=== PATIENT | male | born 1935 | race Caucasian/White ===

== ENCOUNTER 2016-12-29 04:38 | Inpatient (IN) | payer MEDICARE, BC ==
[2016-12-29] VITALS (38 sets, daily range): BP systolic 38–103; BP diastolic 12–61; PULSE 0–158; RESP 12–37; Ht 160 cm; Wt 80.8 kg
[~2016-12-29] VITALS: Ht 160 cm; Wt 80.8 kg
[2016-12-29] MEDS ORDERED: NORepinephrine 8MG/250 ML (PMX 250 ML IV SCH ×2 (05:30→08:00)
[2016-12-29] MEDS ORDERED: VANCOMYCIN IV PER PHARMACY XX SCH (05:30)
[2016-12-29] MEDS ORDERED: PHENYLephrine 20MG IN 250 ML 250 ML ONE (05:56)
[2016-12-29] MEDS ORDERED: SOD CHLORIDE 0.9% 1,000 ML IV SCH (06:00)
[2016-12-29] MEDS ORDERED: PIPER-TAZO 3.375 GM IV (PMX) 100 ML IVPB SCH ×2 (06:00→14:00)
[2016-12-29] MEDS: PHENYLephrine 40 MG in DEXTROSE 5% 496 ML IV SCH ×3 (06:19→12:10)
[2016-12-29 06:29] LABS: ADD SCAN DIFF NO
[2016-12-29 06:38] LABS: ABNORMAL IP MESSAGE 1; HEMATOCRIT 28.1 % (42.0-52.0); HEMOGLOBIN 8.9 g/dl (14.0-18.0); MEAN CORPUSCULAR HEMOGLOBIN 33.8 pg (29.0-33.0); MEAN CORPUSCULAR HGB CONC 31.7 g/dl (32.0-37.0); MEAN CORPUSCULAR VOLUME 106.8 fl (82.0-101.0); PLATELET COUNT 59 10^3/UL (140-415); RED BLOOD COUNT 2.63 10^6/ul (4.70-6.10); RED CELL DISTRIBUTION WIDTH 18.6 % (11.5-14.5); WHITE BLOOD COUNT 0.9 10^3/ul (4.8-10.8)
[2016-12-29 07:43] LABS: ALBUMIN 2.3 g/dl (3.3-4.9); BILIRUBIN,INDIRECT 0.1 mg/dl (0-1.1); BILIRUBIN,TOTAL 0.1 mg/dl (0.2-1.3); TOTAL PROTEIN 4.8 g/dl (6.1-8.1)
--- NOTE | 2016-12-29 07:45 | QN ---
Documentation Comment Called to room 103 of the ICU for an emergent central line for a hypotensive patient on pressors. Ultrasound-guided central line placement note, left femoral vein: Patient was prepped and draped in sterile fashion with count mass Gloves ultrasound probe cover, chlorhexidine wipe. Ultrasound guidance was easily used to introduce a triple lumen 7 Irish catheter using Seldinger technique into the left femoral vein. One attempt was made. All ports had good blood return and flushed well. Patient tolerated the procedure well there were no complications. Patient's vital signs did not change throughout the procedure. VANIA MORENO DO December 29, 2016 07:45
[2016-12-29 07:46] LABS: AADO2 Arterial 567.5 mmHg (7.0-24.0); Allen Test ACCEPTAB; Arterial Base Excess -0.4 mmol/L (-3.0-3); Arterial COHb 0.3 % (0.0-3.0); Arterial Fraction of Oxyhgb 83.3 % (93.0-99.0); Arterial HCO3 29.6 mmol/L (22.0-26.0); Arterial MetHb 0.4 % (0.0-1.5); Arterial Total Hemglobin 9.9 g/dl (12.0-18.0); Blood Gas Low PEEP Setting 0 cmH2O; MODE VENT - AC
[2016-12-29] MEDS ORDERED: METHYLPREDNISOLONE 125 MG INJ IV SCH ×2 (08:00→14:00)
[2016-12-29] MEDS ORDERED: FLUCONAZOLE 100 MG/NS (PMX) 50 ML IVPB SCH (08:00)
[2016-12-29] MEDS ORDERED: VANCOMYCIN 1.5 GM in SOD CHLORIDE 0.9% 250 ML IVPB SCH (08:00)
[2016-12-29] MEDS ORDERED: ALBUMIN HUMAN 25% 50 ML IV ONE (08:30)
[2016-12-29] MEDS ORDERED: DIGOXIN 500 MCG INJ IV ONE ×2 (08:30→12:30)
--- NOTE | 2016-12-29 08:30 | RADRPT ---
PROCEDURE: XR Chest. CLINICAL INDICATION: Central line placement TECHNIQUE: A single AP view of the chest was obtained. COMPARISON: Chest x-ray dated 12/26/2016 and 12/28/2016 FINDINGS: A tracheostomy tube is in place. There is a left subclavian dual chamber pacemaker. Lung volumes are low. There are diffuse bilateral coarse interstitial opacities. The cardiomediasti nal silhouette is partially obscured. Calcifications are seen within the aortic arch. The osseous structures demonstrate senescent changes. There are post procedural changes from multilevel vertebr oplasty. IMPRESSION: 1. Diffuse coarse interstitial opacities may reflect chronic lung changes with superimposed interst itial edema versus pneumonia. Overall, no significant interval change. 2. Low lung volumes. 3. Aortic atherosclerosis. 4. Tubes and lines, as described above. RPTAT: HH .Vicki Andrew MD, Date Time Electronically viewed and signed by .Vicki Andrew MD, on 12/29/2016 08:29 .G/
[2016-12-29] MEDS ORDERED: ALBUMIN HUMAN 25% 100 ML ONE (08:33)
[2016-12-29 08:35] LABS: INR 2.16; PROTIME 24.3 Sec (12.2-14.2); PT RATIO 1.9
--- NOTE | 2016-12-29 08:44 | HP ---
DATE OF ADMISSION: 12/29/2016 CHIEF COMPLAINT: Septic shock. HISTORY OF PRESENT ILLNESS: This is a 81-year-old male with a past medical history of pulmonary fib rosis, a history of multiple myeloma, a history of coronary artery disease, COPD, diastolic heart fa ilure, permanent pacemaker, a history of atrial fibrillation, who initially presented to [facility] with respiratory failure. The patient during that hospital course was found to be hypoxemi c and was subsequently intubated. The patient had a prolonged course and was eventually trached and pegged. The patient's hospital course included bilateral pneumonia and urinary tract infections for his underlying cause of sepsis. The patient was eventually stabilized and transferred to [facility]. While at [facility] the patient was being seen by multiple specialists. He was seen david Begum, hematology, for his underlying multiple myeloma. The patient, in terms of his multiple myeloma, has apparently had multiple lines of chemotherapy, including Velcade, Revamid, dexamethaso ne, and he has progressed through all of them. He is currently on Decadron. The patient while at [facility] had been noted to have a decline in the last 24 hours. Apparently the patient was becoming mo re lethargic, less responsive. Overnight the patient was noted to be hypotensive, not responsive to IV fluids. As a result, he was transferred to [facility] intensive care unit. At the [facility] care unit the patient had a central line placed by the ER physician. He was started on broad -spectrum antibiotics and IV fluids. Upon my evaluation of the patient at this time, the patient's a daughter is at the bedside. The pat ient is currently nonresponsive, retracts only to deep painful stimuli. According to the patient's daughter, she has noted a decline over the last 2 to 3 days, where he is becoming more lethargic. T here are no reports of hemoptysis, hemetemesis or hematochezia. No fever noted. PAST MEDICAL HISTORY: As stated above, a history of pulmonary fibrosis, multiple myeloma, coronary artery disease, heart failure, atrial fibrillation. PAST SURGICAL HISTORY: Status post trach, status post PEG. FAMILY HISTORY: Noncontributory. SOCIAL HISTORY: History of smoking in the past. MEDICATIONS: The patient's medications have been reviewed and reconciled. ALLERGIES: Have been reviewed, please see the list. Patient is FULL CODE. REVIEW OF SYSTEMS: Unable to do an adequate review of systems as the patient is obtunded. Pertinen t positives as obtained through speaking to hospital staff, medical records, as stated in the HPI, o therwise negative. PHYSICAL EXAMINATION: VITAL SIGNS: Blood pressure is 80/54, respirations 28, pulse 132, temperature 98.6. HEENT: Head is normocephalic. Pupils are minimally reactive. HEART: Irregularly irregular. LUNGS: Show diminished breath sounds at the base. Positive rhonchi and crackles. ABDOMEN: Soft, nontender to palpation. Mild ecchymoses. EXTREMITIES: Negative for clubbing or cyanosis. Trace edema. DERMATOLOGIC: No rashes. MUSCULOSKELETAL: Positive wounds. GENITOURINARY EXAM: Positive Weber. NEUROLOGIC: The patient is obtunded. LABORATORY DATA: Shows a white count of 0.9, hemoglobin 8.9, hematocrit 28.1, platelet count of 59. Lactic acid 3.4. CMP is currently pending. Chest x-ray shows coarse interstitial opacities. May represent superimposed edema versus pneumonia. Low lung volumes. ASSESSMENT AND PLAN: This is a 81-year-old male who presents with: 1. Septic shock. Underlying source is presumed to be pneumonia, healthcare-associated. However, g iven the patient's immunocompromised and neutropenic state, will aggressively evaluate for other pos sible sources. Plan at this point is to check blood cultures x2, a urine culture, will check a sput um culture. Will consider getting a CT scan of the abdomen and pelvis once the patient is clinicall y more stable. Will continue broad-spectrum antibiotics with vancomycin and Zosyn. Will add antifu ngal therapy with Diflucan. An infectious disease consult will be placed with Dr. Jaeger for furthe r help management. Will continue the patient on IV fluids and pressor support in order to maintain a MAP above 65, and monitor closely. 2. Ventilator-dependent respiratory failure. Vent settings and ABG have been reviewed. Will place a pulmonary consult with Dr. Macias for evaluation. 3. Tachyarrhythmia/atrial fibrillation. The patient is currently in a rapid rate. Will give the p atient 1 dose of digoxin 125 mcg IV x1. Will continue medical management, place a cardiology consul t with Dr. Sr for evaluation. 4. Dysphagia, status post percutaneous endoscopic gastrostomy. At this point will hold tube feedin gs. 5. Acute encephalopathy. Etiology is toxic metabolic. Will continue to monitor. Consider a CT sc an of the head when the patient is clinically stable. 6. Multiple myeloma. The patient is status post multiple lines of chemotherapy, with progression. Will follow up with hematology for further evaluation. 7. Pancytopenia/neutropenia. Etiology is likely secondary to underlying myeloma in conjunction wit h possible sepsis. Will continue the current treatment plan. Follow up with hematology. Consider Neupogen. 8. History of pulmonary fibrosis. Continue medical management. 9. History of coronary artery disease, status post percutaneous coronary intervention. Continue th e current medical management. Continue aspirin and follow up with cardiology. 10. History of hyponatremia and syndrome of inappropriate antidiuretic hormone. Continue to monito r. 11. History of benign prostatic hypertrophy. With Weber catheter. 12. Anemia/thrombocytopenia. As stated above. The patient is pancytopenic. Will continue to wil tor. Follow up with hematology. 13. History of diastolic heart failure. Will monitor. Continue medical management. 14. Gastrointestinal and deep venous thrombosis prophylaxis. Continue proton pump inhibitor and se quential leg squeezers. 15. Rule out adrenal insufficiency. The patient is on chronic steroids. Will get an a.m. cortisol level. Will also give the patient stress steroids of Solu-Medrol. Please note, I spent over 40 minutes of critical care time with this patient. Please also note, I d iscussed the case with the family. Dictated By: MICA GODINEZ/CHERYL Conf#: [id number] DID#: [id number]
[2016-12-29] MEDS: VASOPRESSIN 60 UNIT in DEXTROSE 5% 57 ML IV SCH ×2 (08:45→09:53)
[2016-12-29] MEDS: ALBUMIN HUMAN 25% 100 ML IV SCH ×2 (08:48→09:01)
--- NOTE | 2016-12-29 09:10 | CONS ---
DATE OF ADMISSION: 12/29/2016 DATE OF CONSULTATION: 12/29/2016 REFERRING PHYSICIAN: Dr. Vega REASON FOR CONSULTATION: Atrial fibrillation, hypotension. CHIEF COMPLAINT: Shock. HISTORY OF PRESENT ILLNESS: Thank you for this referral. History obtained from patient's daughter, discussion with the staff and discussion with Dr. Vega, extensive review of the old chart, ____ from [place]. An unfortunate 81-year-old gentleman with history of pulmonary fibrosis, multiple myelo ma, coronary artery disease, status post PCI many years ago, who was transferred from [facility] to ____ to ICU because of severe shock and subsequent sepsis. The patient unable ____ history to me at this point is lethargic. Apparently he was noted to become progressively more hypotensive. Transferred to ICU, currently on Levophed and Woodrow-Synephrine drip. Hemoglobin at [place] was repor ana as 6.9, repeat hemoglobin here is 8.9. There is no reported chest pain or pressure ____ history to me. PAST MEDICAL HISTORY: History of coronary artery disease, status post PCI 10 years ago, history of multiple myeloma, pulmonary fibrosis, respiratory failure, status post tracheostomy now in the past month, history of sick sinus syndrome with ____ permanent pacemaker, probably [employer] although at this time it is not currently ____ , history of SIADH , hypernatremia, history of dysphagia, status post PEG placement. ALLERGIES: MORPHINE, ____ , MEPERIDINE. FAMILY HISTORY: No history of any coronary artery disease in the family. SOCIAL HISTORY: The patient has been a smoker. REVIEW OF SYSTEMS: As above mentioned. MEDICATIONS: As per medication reconciliation, personally reviewed. PHYSICAL EXAMINATION: VITAL SIGNS: Temperature 98.2, heart rate of 140, blood pressure of 74/45, respiration rate of 34, saturating 98%. HEENT: Normocephalic, atraumatic. Obese gentleman. Status post tracheostomy, on the vent. CARDIOVASCULAR: Irregularly irregular. Tachycardic. PULMONARY: With diffuse rhonchi. GASTROINTESTINAL: Soft, nontender. EXTREMITIES: Trivial edema. NEUROLOGIC: Lethargic, does not respond to verbal or painful stimuli. LABORATORY: WBC of 0.9, hemoglobin 8.9, platelets of 59. Sodium 125, potassium 4.4, BUN of 56, cre atinine 0.97, glucose of 88, lactic acid 3.4. Albumin is 2.3. ABG: pH of 7.16, pCO2 of 84.9, pO2 o f 60. Chest x-ray shows diffuse coarse interstitial opacity. EKG: Atrial fibrillation, rapid ventricular stenosis ____ T-wave abnormalities. ASSESSMENT AND PLAN: 1. Severe sepsis. 2. Septic shock. 3. Hypoxemic ____ respiratory failure status post tracheostomy, vent dependent. 4. Atrial fibrillation, currently rapid ventricular response. 5. Encephalopathy. 6. Severe anemia. 7. Leukopenia. 8. Thrombocytopenia. 9. Severe respiratory acidosis despite being on the vent and trach. 10. History of coronary artery disease, status post PCI. 11. History of chronic obstructive pulmonary disease. 12. History of syndrome of inappropriate anti-diuretic hormone and hyponatremia. RECOMMENDATIONS: Will continue supportive care, ____ Woodrow-Synephrine drip and Levophed will be jose nued for now. I will order a stat echocardiogram to evaluate for LV function. I will give a dose o f digoxin as well to try to control the heart rate better and will repeat it in a few hours if neede d. Continue with the ICU care, place under close monitoring and vent support, with management as pe r pulmonary. Antibiotic is managed as per ID recommendation. Will continue to closely monitor and t ransfuse will be given p.r.n. Dictated By: AIDA MARLEY MD AV/CHERYL Conf#: [id number] DID#: [id number] CC: MICA VEGA DO;*EndCC*
[2016-12-29 09:34] LABS: POTASSIUM 4.3 mmol/L (3.5-5.1)
[2016-12-29 09:36] LABS: CREATININE 1.47 mg/dl (0.61-1.24)
[2016-12-29 09:37] LABS: CALCIUM 8.6 mg/dl (8.4-10.2); PHOSPHORUS 3.4 mg/dl (2.5-4.9)
[2016-12-29 09:38] LABS: MAGNESIUM 1.9 mg/dl (1.7-2.5)
[2016-12-29] MEDS ORDERED: MIDAZOLAM (DRIP) 50 mg/50 mL 50 ML IV SCH (10:00)
--- NOTE | 2016-12-29 10:15 | RADRPT ---
Echocardiogram Report Patient Name: LETITIA Herring Gender: Male Date: 1935 Study Date: 29-Dec-2016 Intermediate Project Manager: Lex Sanders RDCS Location: [facility] Ref. Physician: AIDA SR Quality: Adequate Procedures: Transthoracic echocardiogram with complete 2D, M-Mode, and doppler examination. Indications: resp failure. 2D/M Mode Doppler Measurement Value Normal Ranges Measurement Value Normal Ranges LVIDd 2D 3.9 3.5 - 5.6 cm BIBI Vmax 2.1 cm2 LVIDs 2D 2.2 2.1 - 4.1 cm BIBI VTI 2.1 cm2 LVPWd 2D 1.0 0.6 - 1.1 cm AV Mean Joseph 1.3 m/sec IVSd 2D 1.1 0.6 - 1.1 cm AV Mean PG 7.8 mmHg AoR Diam 2D 2.9 2.0 - 3.7 cm AV Peak Joseph 2.1 m/sec EDV 2D 67.2 cm3 AV Peak PG 16.9 mmHg ESV 2D 10.8 cm3 AV VTI 21.7 cm LA Dimen 2D 4.6 2.3 - 4.0 cm AI Peak PG 40.1 mmHg LVOT Diam 2.2 cm AI Peak Joseph 3.2 m/sec AI PHT 583.7 msec LVOT Mean Joseph 0.7 m/sec LVOT Mean PG 2.5 mmHg LVOT Peak Joseph 1.1 m/sec LVOT Peak PG 4.6 mmHg LVOT VTI 14.6 cm TR Peak Joseph 2.2 m/sec TR Peak PG 18.6 mmHg RVSP 34.0 mmHg Findings Left Ventricle: Normal left ventricular cavity size. Mild concentric left ventricular hypertrophy. Mild global left ventricular systolic dysfunction. Ejection fraction is visually estimated at 45 - 50 %. Abnormal Diastolic Function. Right Ventricle: Normal right ventricular size. Normal right ventricular systolic function. Pacemaker right heart. Left Atrium: There is mild enlargement of left atrium. Right Atrium: The right atrium is normal in size. Mitral Valve: Mitral valve leaflets appear mildly thickened. Mild mitral annular calcification. Trace mitral regurgitation. Aortic Valve: Aortic valve Max velocity 2.06 m/sec. Max PG 16.90 mmHg. Mean PG 7.80 mmHg. Aortic valve area 2.70 cm2. Aortic sclerosis without stenosis. Trace to mild aortic valve regurgitation. Tricuspid Valve: Normal appearance of the tricuspid valve. Estimated peak PA systolic pressure 34 mmHg. There is trace tricuspid regurgitation. Pulmonic Valve: Normal pulmonic valve appearance. There is trace pulmonic regurgitation. Pericardium: Normal pericardium with no significant pericardial effusion. Aorta: Normal aortic root. IVC: Dilated inferior vena cava without respiratory collapse, however, patient on ventilator. Conclusions 1.Normal left ventricular cavity size. Mild concentric left ventricular hypertrophy. Mild global left ventricular systolic dysfunction. Ejection fraction is visually estimated at 45 - 50 %. Abnormal Diastolic Function. 2.There is mild enlargement of left atrium. 3.Mitral valve leaflets appear mildly thickened. Mild mitral annular calcification. Trace mitral regurgitation. 4.Aortic valve Max velocity 2.06 m/sec. Max PG 16.90 mmHg. Mean PG 7.80 mmHg. Aortic valve area 2.70 cm2. Aortic sclerosis without stenosis. Trace to mild aortic valve regurgitation. 5.Normal appearance of the tricuspid valve. Estimated peak PA systolic pressure 34 mmHg. There is trace tricuspid regurgitation. 6.Dilated inferior vena cava without respiratory collapse, however, patient on ventilator. Electronically Signed By: Aida Sr 29-Dec-2016 10:14:52 -0700 Patient Name: LETITIA Herring Study Date: 29-Dec-2016 [id number]
[2016-12-29 10:48] LABS: LYMPHOCYTES # 0.1 10^3/ul (0.8-2.9); NEUTROPHIL # 0.5 10^3/ul (1.6-7.5); PLATELET ESTIMATE PLT APPEAR DECREASED
--- NOTE | 2016-12-29 11:08 | CONS ---
DATE OF ADMISSION: 12/29/2016 DATE OF CONSULTATION: 12/29/2016 TYPE OF CONSULTATION: Pulmonary. REASON FOR CONSULTATION: Shortness of breath, respiratory failure. Thank you, Dr. Vega, for this consultation. HISTORY OF PRESENT ILLNESS: This is an unfortunate 81-year-old gentleman with multiple medical prob lems including pulmonary fibrosis, multiple myeloma, coronary artery disease with chronic respirator y failure previously managed at [facility], where he became more hypotensive and wo rsening respiratory distress, now transferred to the intensive care unit for further monitoring. He re he remains hypotensive requiring multiple vasopressors. Requires pressure control ventilation fo r hypercapnic respiratory failure. The patient is also somnolent. PAST MEDICAL HISTORY: Pulmonary fibrosis, multiple myeloma, coronary artery disease, congestive hea rt failure, atrial fibrillation. MEDICATIONS: Per chart. ALLERGIES: NONE. SOCIAL HISTORY: Nonsmoker, no alcohol, no history of drug use. FAMILY HISTORY: Noncontributory. REVIEW OF SYSTEMS: A 12-point review of systems unable to perform. PHYSICAL EXAMINATION: GENERAL: Elderly-appearing gentleman. Pupils are minimally reactive, unresponsive to painful stimu li. VITAL SIGNS: Currently afebrile, temperature 98, pulse is 125, blood pressure 60/20, O2 saturation 80% on FIO2 of 100%. NECK: Trach site clean and intact. CARDIAC: S1, S2, no added sounds or murmurs. CHEST: Diminished air entry bilaterally with rhonchi. ABDOMEN: Soft, nontender. No guarding or rebound. EXTREMITIES: No cyanosis, clubbing, 2+ edema. NEUROLOGIC: Generalized weakness. LABORATORY DATA: White count 0.9, hemoglobin 8.9, platelets of 59. BUN 58, creatinine 1.57. ABG: pH 7.16, pCO2 of 84. INR 2.16. Chest x-ray shows significant bilateral infiltrates. IMPRESSION AND PLAN: 1. Septic shock. 2. Hypoxemic and hypercapnic respiratory failure, acute on chronic, with underlying pulmonary fibro sis and likely healthcare-associated pneumonia. 3. Multiple myeloma with pancytopenia. 4. Renal insufficiency. 5. Encephalopathy. The patient will require: 1. Continue vasopressors. 2. Mechanical ventilation with pressure control ventilation. 3. Broad-spectrum antibiotics. 4. IV fluids. 5. DVT and GI prophylaxis. Overall prognosis is very poor. I spoke to the patient's family at bedside. They agree with DO NOT RESUSCITATE should he have cardiac arrest. Dictated By: LULY RODRÍGUEZ MD SV/CHERYL Conf#: [id number] DID#: [id number]
--- NOTE | 2016-12-29 12:54 | CONS ---
DATE OF ADMISSION: 12/29/2016 DATE OF CONSULTATION: 12/29/2016 TYPE OF CONSULTATION: INFECTIOUS DISEASE. REASON FOR CONSULTATION: Antibiotic management. HISTORY OF PRESENT ILLNESS: Joseph Cruz is a 81-year-old male with numerous problems who comes in with septic shock. His past problems include: 1. Pulmonary fibrosis. 2. Multiple myeloma. 3. Coronary artery disease. 4. Congestive heart failure. 5. Atrial fibrillation. 6. Chronic obstructive pulmonary disease. 7. Permanent pacemaker. Patient presented to [facility] with respiratory failure and hypoxemia. He was subsequentl y intubated, he had a prolonged course and eventually had a tracheostomy and a PEG placed. He had b ilateral pneumonia and urinary tract infection as cause for underlying sepsis. He was eventually st abilized and transferred to [facility]. As noted, he has multiple myeloma and has lewis d multiple courses of chemotherapy including Velcade, Revamid, dexamethasone and [facility] all of them. Currently he is on Decadron. The patient has had a decline in his health over the last 24 hours and became more lethargic and less responsive. He became hypotensive and was transfe rred to [facility] ICU. A central line was placed by the ER physician, and he was started on broad spectrum antibiotic therapy. PAST MEDICAL HISTORY: Operations as outlined. PAST SURGICAL HISTORY: Status post trach, status post PEG. FAMILY HISTORY: Noncontributory. SOCIAL HISTORY: History of smoking in the past. ALLERGIES: NONE TO PENICILLIN, SULFA OR FOODS. MEDICATIONS: Per chart. REVIEW OF SYSTEMS: As per HPI. PHYSICAL EXAMINATION: GENERAL: The patient is a chronically ill-appearing male. He is unresponsive. Responds only to de ep pain. VITAL SIGNS: Stable. Blood pressure is 80/54, so he was hypotensive, respirations of 28, pulse 132 , temperature 98.6. He has a trach, PEG and a central line. SKIN: Without generalized rash. HEENT: Within normal limits. NECK: Supple. LYMPH NODES: None palpable. CHEST: Decreased breath sounds at the bases with occasional rhonchi and rales. HEART: Without murmur or gallop. Irregularly irregular rhythm. ABDOMEN: Soft, nontender, without organosplenomegaly or masses. EXTREMITIES: Without cyanosis, clubbing, or edema. RECTAL AND GENITAL: Deferred. NEUROLOGIC: No focal neurological abnormalities. Patient has a Weber catheter. The patient is obtu nded. LABORATORY DATA: Shows a white count of 0.9, hemoglobin of 8.9 and hematocrit 28.1, platelet count is 59,000. IMAGING: Chest x-ray shows coarse interstitial opacities, may represent superimposed edema versus pneumonia. IMPRESSION: The patient is in septic shock, improved, presumably from healthcare-associated pneum onia. He is also immunocompromised and neutropenic. Blood cultures were done. Sputum was done, a CT scan of the abdomen and pelvis is being considered. The patient was started on vancomycin and Zo syn and also fluconazole. Will await the results of the cultures. I will dictate my findings to Dr Emily Vega, Dr. Sr and Dr. Macias. Dictated By: YANETH JONAS MD, JD/CHERYL Conf#: [id number] DID#: [id number]
--- NOTE | 2016-12-29 13:16 | QN ---
Documentation Comment Was called to ICU room for pronouncement of of the patient had lost pulses completely. I had seen this patient earlier in the day to place a central line. He had been on multiple pressors and was still decompensating. Had an EKG machine hooked up to the patient that showed asystole in all leads. This was consistent with a imaging clerk showing asystole. Patient had no breath sounds temporarily turned off the ventilator and had no pulses throughout. Time of was called at 1309. Family was at the bedside VANIA MORENO DO December 29, 2016 13:16
[2016-12-30] MEDS ORDERED: PANTOPRAZOLE 40 MG INJ IV SCH (06:00)
[2016-12-30] MEDS ORDERED: VANCOMYCIN 1.25 GM in SOD CHLORIDE 0.9% 250 ML IVPB SCH (08:00)
--- NOTE | 2016-12-30 16:39 | RADRPT ---
Vent Rate: 130 bpm RR Interval: 0 msec SC Interval: 0 msec QRS Duration: 86 msec QT Interval: 298 msec QTC Interval: 438 msec P-R-T [place]: 0 - 3 - -52 degrees Atrial fibrillation with rapid ventricular response Marked ST abnormality, possible inferior subendocardial injury Abnormal ECG Electronically Signed By: Matthew Green [id number]
[2016-12-31] MEDS ORDERED: VANCOMYCIN 1.25 GM in SOD CHLORIDE 0.9% 250 ML IVPB SCH ×2
--- NOTE | 2017-01-05 12:01 | DS ---
DATE OF ADMISSION: 12/29/2016 DATE OF DISCHARGE: 12/29/2016 SUMMARY HOSPITAL COURSE: This is a 81-year-old male with a past medical history of pulmonary fibrosis, mult iple myeloma, coronary artery disease, COPD, diastolic heart failure, history of AFib, who initially presented to [facility] with respiratory failure. During that hospital course the patient was hypoxemic, was subsequently intubated. The patient was eventually trached and pegged. The [facility] ent's hospital course included bilateral pneumonia, UTI as well as underlying sepsis. The patient w as eventually stabilized and brought over to [facility]. While at [facility], he was see n by multiple specialists including Dr. Begum for his multiple myeloma. The patient, however, at [facility] was noted to have worsening infiltrates secondary to hospital-acquired pneumonia. The patient then had decompensated and was transferred to [facility] intensive care unit. While in [facility] the patient was noted to be in septic shock. The patient, despite being on multipl e pressors, IV antibiotics, unfortunately . FINAL DIAGNOSES: 1. Septic shock secondary to healthcare-associated pneumonia. 2. Ventilatory-dependent respiratory failure. 3. Atrial fibrillation. 4. Dysphagia. 5. Encephalopathy. 6. Multiple myeloma. 7. Pancytopenia. 8. Pulmonary fibrosis. 9. Coronary artery disease. 10. Hyponatremia. 11. Benign prostatic hypertrophy. 12. Anemia and thrombocytopenia. 13. Diastolic heart failure. Dictated By: MICA GODINEZ/CHERYL Conf#: [id number] DID#: [id number]
--- NOTE | 2017-01-05 12:58 | DES ---
DATE OF ADMISSION: 12/29/2016 DATE OF : 12/29/2016 SUMMARY HOSPITAL COURSE: This is a 81-year-old male with a past medical history of pulmonary fibrosis, mult iple myeloma, coronary artery disease, COPD, diastolic heart failure, history of AFib, who initially presented to [facility] with respiratory failure. During that hospital course the patient was hypoxemic, was subsequently intubated. The patient was eventually trached and pegged. The [facility] course included bilateral pneumonia, UTI as well as underlying sepsis. The patient w as eventually stabilized and brought over to [facility] [place]. While at [facility], he was see n by multiple specialists including Dr. Begum for his multiple myeloma. The patient, however, at [facility] was noted to have worsening infiltrates secondary to hospital-acquired pneumonia. The patient then had decompensated and was transferred to [facility] intensive care unit. While in [facility] the patient was noted to be in septic shock. The patient, despite being on multipl e pressors, IV antibiotics, unfortunately . FINAL DIAGNOSES: 1. Septic shock secondary to healthcare-associated pneumonia. 2. Ventilatory-dependent respiratory failure. 3. Atrial fibrillation. 4. Dysphagia. 5. Encephalopathy. 6. Multiple myeloma. 7. Pancytopenia. 8. Pulmonary fibrosis. 9. Coronary artery disease. 10. Hyponatremia. 11. Benign prostatic hypertrophy. 12. Anemia and thrombocytopenia. 13. Diastolic heart failure. Dictated By: MICA GODINEZ/CHERYL Conf#: [id number] DID#: [id number]
== END 2016-12-29 13:09 | disposition expired | DRG 871 ==
LOC: ICU 04:38
PROVIDERS: ADMIT Internal Medicine Nephrology; ATTEND Internal Medicine Nephrology
PROC: 06HN33Z Insertion of Infusion Device into Left Femoral Vein, Percutaneous Approach (ICD-10-PCS; principal; 2016-12-29)
PROC: 5A1935Z Respiratory Ventilation, Less than 24 Consecutive Hours (ICD-10-PCS; 2016-12-29)
PROC: B54CZZA Ultrasonography of Left Lower Extremity Veins, Guidance (ICD-10-PCS; 2016-12-29)
DX: A41.9 Sepsis, unspecified organism (principal); J18.9 Pneumonia, unspecified organism; J96.21 Acute and chronic respiratory failure with hypoxia; R65.21 Severe sepsis with septic shock; G92 Toxic encephalopathy; C90.00 Multiple myeloma not having achieved remission; E87.2 Acidosis; D61.818 Other pancytopenia; J96.22 Acute and chronic respiratory failure with hypercapnia; I50.30 Unspecified diastolic (congestive) heart failure; E87.1 Hypo-osmolality and hyponatremia; J44.9 Chronic obstructive pulmonary disease, unspecified; J84.10 Pulmonary fibrosis, unspecified; I48.91 Unspecified atrial fibrillation; I25.10 Atherosclerotic heart disease of native coronary artery without angina pectoris; N28.9 Disorder of kidney and ureter, unspecified; N40.0 Benign prostatic hyperplasia without lower urinary tract symptoms; R13.10 Dysphagia, unspecified; D64.9 Anemia, unspecified; D69.6 Thrombocytopenia, unspecified; Y95 Nosocomial condition; Z92.21 Personal history of antineoplastic chemotherapy; Z98.61 Coronary angioplasty status; Z88.6 Allergy status to analgesic agent; Z87.440 Personal history of urinary (tract) infections; Z95.0 Presence of cardiac pacemaker
CPT/HCPCS: 36600; 71010; 80048; 80076; 82533; 82803; 83605; 83735; 84100; 84145; 85025; 85610; 87040; 87081; 93005; 93306; 94002; C1751; J1450; J2370; J2543; J3370; J7030; J7050; J7060; P9047